=== PATIENT | male | born 1970 | race Caucasian/White ===

== ENCOUNTER 2025-01-09 19:30 | Emergency (ER) | payer MEDICARE, OTHER, SELFPAY ==
[2025-01-09 19:40] VITALS: BP 113/63; BMI 68.0
--- NOTE | 2025-01-09 19:41 | ED.GENMED ---
History of Present Illness
General
Chief Complaint: Crisis Evaluation
Source: patient
Exam Limitations: none
Time Seen by Provider: 01/09/25 19:32
History of Present Illness
History of Present Illness:
54-year-old male [facility] attempt of [facility] himself. He states he wrapped a rope around his neck and tied it to the door hinge and try to let his weight off his feet. He states the rope broke. He then spoke with
staff and they brought him here for evaluation. He states he is depressed. He was thinking about killing himself earlier today. He denies thoughts of harming others. He denies neck pain. He states he did not have an abrasion to his neck. No
shortness of breath that is new or chest pain.
Phy Exam
Physical Exam
Physical Exam:
General: Well-appearing obese male no respiratory distress
HEENT: Normocephalic atraumatic
Heart: Regular rate and rhythm
Lungs: Clear no wheeze
Abdomen is soft nontender
Extremities: No cyanosis
Psychiatric exam: Admits to depressed mood with recent suicidal thoughts and a plan to hang himself.
Course
Orders/Labs/Results
Orders:
Orders
01/09/25 19:41
Crisis Consult Urgent
Reason for Consult: SI
one to one [ED Special Safety Observation] ONCE
Observation level: One to One
01/09/25 20:04
1:1 Observation - Suicide/ Violent Behavior As Directed
01/09/25 20:23
Alcohol Urgent
Complete Blood Count/With Diff Urgent
Comprehensive Metabolic Panel Urgent
01/09/25 21:35
Drug Screen, Urine [Urine Drug Abuse Screen] Urgent
Date Specimen was Collected: 01/09/25
Time Specimen was Collected: 21:32
Fentanyl, Urine Urgent
01/10/25 02:01
0.9% Sodium Chloride 500 ml [Nss] 500 ml IV BOLUS
Insulin Human Regular [Novolin R] 10 units IV NOW STA
Abnormal Lab Results
01/09/25 01/09/25
20:23 21:35
RBC 4.14 L 10^6/uL
(4.70-6.10)
Hgb 11.5 L g/dL
(13.0-18.0)
Hct 35.5 L %
(39.0-52.0)
MCHC 32.4 L g/dL
(33.0-37.0)
RDW 14.7 H %
(11.5-14.5)
Plt Count 114 L 10^3/uL
(130-400)
MPV 11.0 H fL
(7.4-10.4)
Abs Immat Gran (auto) 0.1 H 10^3/uL
(0-0.05)
Absolute Lymphs (auto) 0.5 L 10^3/uL
(1.2-3.4)
Immature Gran % 1.2 H %
(0-0.5)
Neutrophils % 79.2 H %
(42.2-75.2)
Lymphocytes % 7.9 L %
(20.5-51.1)
Sodium 134 L mmol/L
(135-145)
BUN 44 H mg/dl
(9-20)
Creatinine 1.6 H mg/dL
(0.7-1.3)
Glucose 422 H mg/dl
(70-99)
Urine Opiates Screen Positive H
(Negative)
01/09/25 20:23
01/09/25 20:23
Vital Signs
Initial and Last Documented VS:
Initial Vital Signs
Temp Pulse Resp BP Pulse Ox
99.1 F 81 18 113/63 98
01/09/25 19:40 01/09/25 19:40 01/09/25 19:40 01/09/25 19:40 01/09/25 19:40
Last Documented Vital Signs
Temp Pulse Resp BP Pulse Ox
98.9 F 85 14 126/72 99
01/10/25 02:43 01/10/25 02:43 01/10/25 02:43 01/10/25 02:43 01/10/25 02:43
MDM/Problems Addressed
Differential Diagnosis Includes:
Patient here from facility after attempted hanging himself at his facility. One-to-one ordered crisis consult ordered. No evidence of trauma to the neck no respiratory distress or even abrasion on the neck at this time no indication for imaging.
Will check labs.
Crisis saw patient and are actively looking for placement however he has multiple medical comorbidities which will make placement somewhat difficult.
*Critical Care Note
Total Time (30-74mins, 75-104mins- exclusive of procedures): Not Applicable
Update Note
Update Note:
Serum glucose 422 without anion gap. Insulin ordered. Small fluid bolus ordered as well. Potential lower box placement tomorrow.
ED Attending Note
-
Portions of this chart may have been created with voice recognition software.� Occasional wrong word or��sound alike� substitutions may have occurred due to the inherent limitations of voice recognition software.
Discharge Plan
Departure
Patient Disposition: Psych Facility
Date of Disposition: 01/10/25
Time of Disposition: 03:00
Discharge Problem:
Suicidal ideation
Referrals:
Ha Cole MD [Family Provider] -
Interventions
Interventions:
*Risk Screen - Suicide Last Done: 01/09/25 19:40
*General Assessment Last Done: 01/09/25 19:40
*Neglect/Abuse Screening Last Done: 01/09/25 19:40
*ED- Fall Risk Assessment Last Done: 01/10/25 02:44
*ED COVID-19 Vaccine History Last Done: 01/10/25 02:44
ED-Psychological Assessment Last Done: 01/09/25 23:31
Discharge Date and Time
Print Language: TOGOLESE
[2025-01-09 20:34] LABS: % Basophils 0.7 % (0-2); % Eosinophils 2.8 % (0-6); % Immature Granulocytes 1.2 % (0-0.5); % Lymphocytes 7.9 % (20.5-51.1); % Monocytes 8.2 % (1.7-9.3); % Neutrophils 79.2 % (42.2-75.2); Absolute Eosinophils 0.2 10^3/uL (0-0.7); Absolute Immature Granulocytes 0.1 10^3/uL (0-0.05); Absolute Lymphocytes 0.5 10^3/uL (1.2-3.4); Absolute Monocytes 0.5 10^3/uL (0.1-0.6); Absolute Neutrophils 4.8 10^3/uL (1.4-6.5); Hematocrit 35.5 % (39.0-52.0); Hemoglobin 11.5 g/dL (13.0-18.0); Mean Corp Hgb Conc. 32.4 g/dL (33.0-37.0); Mean Corpuscular Hgb 27.8 pg (27.0-31.0); Mean Corpuscular Volume 85.7 fL (80.0-94.0); Nucleated Red Blood Cells % 0 % (-); Platelet Count 114 10^3/uL (130-400); Red Blood Cell Count 4.14 10^6/uL (4.70-6.10); Red Cell Dist. Width 14.7 % (11.5-14.5); White Blood Cell Count 6.1 10^3/uL (4.8-10.8)
[2025-01-09 20:54] LABS: ALT (SGPT) 23 U/L (0-50); AST (SGOT) 32 U/L (17-59); Albumin 3.5 g/dl (3.5-5.0); Alkaline Phosphatase 97 U/L (38-126); Blood Urea Nitrogen 44 mg/dl (9-20); Calcium 8.7 mg/dl (8.4-10.2); Carbon Dioxide 28 mmol/L (22-30); Chloride 98 mmol/L (98-107); Estimated Creatinine Clearance 99 ml/min; Glucose 422 mg/dl (70-99); Potassium 3.8 mmol/L (3.5-5.1); Sodium 134 mmol/L (135-145); Total Bilirubin 1.2 mg/dl (0.2-1.3); Total Protein 6.9 g/dl (6.3-8.2); eGFR 51.52
[2025-01-09 21:54] LABS: Amphetamines Negative (Negative); Barbiturates Negative (Negative); Benzodiazepines Negative (Negative); Buprenorphine Negative (Negative); Cocaine Negative (Negative); Marijuana Negative (Negative); Methadone Negative (Negative); Methamphetamines Negative (Negative); Opiates Positive (Negative); Phencyclidine Negative (Negative); Tricyclic Antidepressants Negative (Negative)
[2025-01-09 22:10] LABS: Fentanyl, Urine Negative (Negative)
[2025-01-10] MEDS: NSS 500 IV (02:33)
[2025-01-10] MEDS: NOVOLIN R 10 UNITS IV (02:36)
[2025-01-10 02:43] VITALS: BP 126/72
[2025-01-10 03:56] LABS: Glucose - Point of Care 276 mg/dl (70-99)
[2025-01-10 06:55] LABS: Glucose - Point of Care 290 mg/dl (70-99)
[2025-01-10 08:00] VITALS: BP 118/68
[2025-01-10 11:10] VITALS: BP 122/70
[2025-01-10 13:13] LABS: Glucose - Point of Care 281 mg/dl (70-99)
--- NOTE | 2025-01-10 14:07 | CON.HOSP ---
Addendum entered and electronically signed by Janette Sapp MD 01/10/25 14:15:
Mild thrombocytopenia likely secondary to cirrhosis.
Patient takes chronic opiates. Continue.
Original Note:
Family Physician
-
Family Physician: Ha Cole MD
Chief Complaint
-
suicide attempt
History of Present Illness
54-year-old male past medical history of obstructive sleep apnea, diastolic CHF, fibromyalgia, gout, CKD 3, PTSD, type 2 diabetes, anxiety/depression, obesity, asthma, TIA, liver cirrhosis, [facility] after
attempting to hang himself. He states that he wrapped a rope around his neck and tied at the door hinge and tried to let his weight of his feet. He states that the rope broke. He then spoke with staff and they brought him here for evaluation. He
states he is depressed. He was thinking about killing himself earlier today. He denies thoughts of harming others. Denies neck pain. He does not have an abrasion to his neck.
He complains of shortness of breath which is chronic. He has a massive hernia that no surgeon will operate on which causes him a lot of discomfort.
Medical History
Past Medical History
Past Medical History: Reports Other (obstructive sleep apnea, diastolic CHF, fibromyalgia, gout, CKD 3, PTSD, type 2 diabetes, anxiety/depression, obesity, asthma, TIA, liver cirrhosis)
Past Surgical History: Reports None
Social History
Tobacco: Non-smoker
Alcohol: None
Drug: None
Allergies / Home Medications
Allergies reflects when Allergies were last updated in [employer].
Home Medications with original date entered in [employer]
Allergy/Medication List:
Allergies
Allergy/AdvReac Type Severity Reaction Status Date / Time
oxycodone [From OxyContin] Allergy Severe Pharmacy Verified 01/10/25 06:49
to Review
morphine Allergy Mild Unknown Verified 01/10/25 06:49
Sulfa (Sulfonamide Allergy Unknown Unknown Verified 01/10/25 06:49
Antibiotics)
Home Medications
acetaminophen 325 mg tablet 650 mg PO Q4H PRN fever 01/10/25
acetaminophen 325 mg tablet 650 mg PO Q4H PRN mild pain 01/10/25
acetaminophen 650 mg rectal suppository 650 mg VA Q4H PRN fever 01/10/25
albuterol sulfate 90 mcg/actuation aerosol inhaler 2 puff inhalation Q6H PRN wheezing 01/10/25
allopurinol 100 mg tablet 100 mg PO DAILY 01/10/25
bisacodyl 10 mg rectal suppository 10 mg VA DAILY PRN if no BM with MOM 01/10/25
bumetanide 2 mg tablet 2 mg PO BID 01/10/25
clotrimazole 1 % topical cream 1 applic topical BID 01/10/25
diclofenac sodium 1 % topical gel 2 g topical QIDPRN PRN shoulder pain 01/10/25
diclofenac sodium 1 % topical gel (Voltaren Arthritis Pain) 4 g topical Q6H apply to left knee topica 01/10/25
empagliflozin 25 mg tablet 25 mg PO DAILY 01/10/25
famotidine 20 mg tablet 20 mg PO BIDPRN PRN heartburn or indigestion 01/10/25
ferrous sulfate 325 mg (65 mg iron) tablet 325 mg PO DAILY 01/10/25
fluoxetine 20 mg capsule 60 mg PO DAILY 01/10/25
hydromorphone 1 mg/mL oral liquid (Dilaudid) 1 mg PO Q1HPRN PRN 1 MG SL for SOB or pain 01/10/25
hyoscyamine sulfate 0.125 mg sublingual tablet (Levsin/SL) 0.125 mg PO Q4HPRN PRN secretions 01/10/25
insulin glargine 100 unit/mL (3 mL) subcutaneous pen (Basaglar KwikPen U-100 Insulin) 48 unit SC QPM 01/10/25
insulin lispro 100 unit/mL subcutaneous pen 20 unit SC TID 01/10/25
insulin lispro 100 unit/mL subcutaneous solution 1 sliding scale dose SC DIRECTED 01/10/25
levetiracetam 500 mg tablet 500 mg PO BID 01/10/25
loperamide 2 mg tablet 2 mg PO Q6H PRN loose stools 01/10/25
lorazepam 2 mg/mL oral concentrate 0.25 mg PO Q4HPRN PRN anxiety 01/10/25
magnesium hydroxide 400 mg/5 mL oral suspension 400 mg PO DAILY PRN if no BM after 3 days 01/10/25
menthol-sorbitol lozenges 1 tori mucous membrane Q4HPRN PRN sore throat cough 01/10/25
metoprolol succinate 25 mg capsule sprinkle, ext. release 24 hr 25 mg PO DAILY 01/10/25
nitroglycerin 0.4 mg sublingual tablet 0.4 mg sublingual Q5-15M PRN chest pain up to 3 doses 01/10/25
nystatin 1 billion unit oral powder 1 unit PO DAILY 01/10/25
ondansetron 4 mg disintegrating tablet 4 mg PO Q6H PRN nausea/vomiting 01/10/25
pantoprazole 40 mg tablet,delayed release 40 mg PO DAILY 01/10/25
polyethylene glycol 3350 17 gram oral powder packet (Miralax) 17 g PO DAILY 01/10/25
pyridoxine (vitamin B6) 100 mg tablet 100 mg PO DAILY 01/10/25
rifaximin 550 mg tablet 550 mg PO BID 01/10/25
sodium chloride 0.65 % nasal spray aerosol (Deep Sea Nasal) 2 spray intranasal BID 01/10/25
spironolactone 100 mg tablet 100 mg PO DAILY in evening for CHF 01/10/25
sucralfate 1 gram tablet 1 g PO ACHS 01/10/25
Review of Systems
-
Constitutional: Reports No Symptoms
EENT: Reports No Symptoms
Respiratory: Reports See HPI
Cardiac: Reports No Symptoms
Abdomen/GI: Reports No Symptoms
: Reports No Symptoms
Musculoskeletal: Reports No Symptoms
Skin: Reports No Symptoms
Neurological: Reports No Symptoms
Endocrine: Reports No Symptoms
Hematologic/Lymphatic: Reports No Symptoms
Psych: Reports No Symptoms
Physical Exam
Vital Signs
Vital Signs
Temp Pulse Resp BP Pulse Ox
98.4 F 78 18 122/70 99
01/10/25 08:00 01/10/25 11:10 01/10/25 11:10 01/10/25 11:10 01/10/25 11:10
Physical Exam
General: Well Developed, Well Nourished and No Apparent Distress
HEENT: Normocephalic, Moist Mucous Membranes and Atraumatic
Respiratory: Clear
Cardiac: S1/S2 and Regular Rhythm; Negative Murmur or Rub
GI: Soft, Non Tender, Non Distended and Normal Bowel Sounds
Rectal: Deferred by Provider
Musculoskeletal: No Clubbing, No Cyanosis and No Edema
Skin: Negative Rash
Neuro: Nonfocal/Grossly Intact
Laboratory Results
-
Laboratory Results
01/09/25 20:23
01/09/25 20:23
Total Bilirubin 1.2 mg/dl (0.2-1.3) 01/09/25 20:23
AST 32 U/L (17-59) 01/09/25 20:23
ALT 23 U/L (0-50) 01/09/25 20:23
Alkaline Phosphatase 97 U/L (38-126) 01/09/25 20:23
Data Reviewed
-
Lab Data: Labs Reviewed
Old Records: Reviewed
Impression / Plan
-
IMPRESSION:
PLAN:
# Suicide attempt
- Crisis working on placement
-One-to-one sitter
- UDS pending
- Alcohol level pending
- Psychiatry
- Continue fluoxetine
# Hyperglycemia secondary to untreated diabetes
#Type 2 diabetes
- Blood sugar 440
- Continue Lantus 48 units
- Continue lispro 20 units 3 times daily
- High-dose insulin sliding scale
- Continue empagliflozin
#Severe abdominal hernia
- As per patient no surgeon will operate on him
# Chronic dyspnea likely secondary to severe obesity/chronic CHF
- O2 saturation 99%
- EKG shows sinus rhythm first-degree AV block
- Check chest x-ray, cardiac BNP
Diastolic CHF
- Continue metoprolol
- Continue Bumex
Obstructive sleep apnea
Asthma
CKD3
- Unknown baseline creatinine, currently 1.6 which is likely close to baseline
- IV fluids given, hold off on further fluids
Mild thrombocytopenia
Anemia
Gout
- Continue allopurinol
Fibromyalgia
Anxiety/PTSD
- Continue lorazepam
Possible seizure disorder?
- Continue Keppra
Liver cirrhosis
- Continue spironolactone, rifaximin
- Continue Bumex
GERD
- Continue sucralfate, Protonix
Hyperlipidemia
Morbid obesity
Full code
DVT prophylaxis�heparin
Regular diet
[2025-01-10 15:50] LABS: NT-proBNP 155 pg/ml
[2025-01-10 16:04] VITALS: BP 128/78
[2025-01-10] MEDS: BUMEX 4 MG PO (16:15)
[2025-01-10] MEDS: CARAFATE 1 GRAM PO ×2 (16:19→21:03)
[2025-01-10] MEDS: NOVOLOG FLEXPEN-HIGH RESISTANCE 10 UNITS SC (16:26)
[2025-01-10 16:27] LABS: Glucose - Point of Care 323 mg/dl (70-99)
[2025-01-10] MEDS: NOVOLOG FLEXPEN 20 UNITS SC (16:27)
[2025-01-10 19:01] LABS: Glucose - Point of Care 293 mg/dl (70-99)
[2025-01-10] MEDS: LANTUS 0.48 UNITS SC (19:30)
[2025-01-10 19:40] VITALS: BP 151/54
[2025-01-10] MEDS: KEPPRA 500 MG PO (21:03)
[2025-01-10] MEDS: LOTRIMIN 1% CREAM 1 APPLIC TOPICAL (21:04)
[2025-01-10] MEDS: XIFAXAN 550 MG PO (21:04)
[2025-01-10] MEDS: OCEAN, SALINE MIST 2 SPRAYS NASAL (21:04)
[2025-01-10 23:19] LABS: Glucose - Point of Care 308 mg/dl (70-99)
[2025-01-10 23:25] VITALS: BP 120/53
[2025-01-11 07:40] LABS: Glucose - Point of Care 251 mg/dl (70-99)
[2025-01-11 07:48] VITALS: BP 118/61
[2025-01-11] MEDS: KEPPRA 500 MG PO ×2 (07:54→20:10)
[2025-01-11] MEDS: FEOSOL 325 MG PO (07:54)
[2025-01-11] MEDS: TOPROL XL 25 MG PO (07:54)
[2025-01-11] MEDS: BUMEX 4 MG PO ×2 (07:54→17:07)
[2025-01-11] MEDS: CARAFATE 1 GRAM PO ×3 (07:54→17:07)
[2025-01-11] MEDS: FARXIGA 10 MG PO (07:54)
[2025-01-11] MEDS: OCEAN, SALINE MIST 2 SPRAYS NASAL ×2 (07:55→20:11)
[2025-01-11] MEDS: PROZAC 60 MG PO (07:55)
[2025-01-11] MEDS: VITAMIN B-6 100 MG PO (07:55)
[2025-01-11] MEDS: ZYLOPRIM 100 MG PO (07:55)
[2025-01-11] MEDS: PROTONIX 40 MG PO (07:55)
[2025-01-11] MEDS: XIFAXAN 550 MG PO ×2 (08:28→20:11)
[2025-01-11] MEDS: ALDACTONE 100 MG PO (08:28)
[2025-01-11] MEDS: LOTRIMIN 1% CREAM 1 APPLIC TOPICAL (08:29)
[2025-01-11] MEDS: DESENEX/MITRAZOL/ZEASORB 1 APPLIC TOPICAL (08:30)
[2025-01-11] MEDS: NOVOLOG FLEXPEN-HIGH RESISTANCE 7 UNITS SC (08:32)
[2025-01-11] MEDS: NOVOLOG FLEXPEN 20 UNITS SC ×3 (08:34→18:06)
--- NOTE | 2025-01-11 09:15 | EDRN ---
Pt voided on floor in room at this time.
--- NOTE | 2025-01-11 09:18 | W.PN.HOSP.TC ---
Today's Communication/Plan
-
Check troponin
EKG
Continue insulin
Assessment / Plan
Assessment / Plan
Gen-AAOx3, mild distress, morbid obesity
HEENT-NC, AT, anicteric, clear oral mm
Neck-supple
CV-reg, no M, +S1/S2
Lungs-clear B/L
Abd-soft, NT, ND, massive hernia
Ext-no edema
Musculoskeletal-no cyanosis, clubbing
Skin-warm and dry
Neuro-grossly non-focal
Psych-calm, cooperative
Chest pain -atypical. Doubt ACS. Check troponin. Check EKG.
DM2 with hyperglycemia -glucose 251 this morning. Currently on Lantus 48 units at bedtime, NovoLog 20 units AC, high resistance NovoLog scale. Hemoglobin A1c pending.
Pseudohyponatremia -due to hyperglycemia.
Major depression with suicidal ideation/attempt -crisis working on placement. One-to-one sitter.
Large abdominal hernia
Chronic heart failure preserved EF -stable.
HANK
Asthma without exacerbation
CKD 3a -unknown baseline creatinine. Recheck labs today.
Hepatic cirrhosis -will need close outpatient follow-up. Anemia and thrombocytopenia presumably due to cirrhosis.
GERD
History of gout
Hyperlipidemia
Super morbid obesity
Anticipated Discharge: Within 24 hours
Subjective/Interval History
-
Date of Service: January 11, 2025
Patient seen and examined. Complaining of chest pain. Refusing to answer more questions.
During my examination patient lost control of his bladder and urinated on the floor.
Objective Data
-
Vital Signs:
Vital Signs
Temp Pulse Resp BP Pulse Ox
98.6 F 73 20 118/61 100
01/10/25 23:25 01/11/25 08:28 01/11/25 07:48 01/11/25 08:28 01/11/25 07:48
I&O
01/10/25 01/11/25 01/12/25
06:59 06:59 06:59
Intake Total 500 / 500
Balance 500 / 500
Review of Systems
-
History Source: Patient
All other systems: Reviewed and negative
--- NOTE | 2025-01-11 10:07 | EDRN ---
Pt complaining of chest pain at this time. TRop and BMP ordered and sent and EKG done. Pt placed on phototypesetting equipment monitor in room.
[2025-01-11 10:10] VITALS: BP 120/62
--- NOTE | 2025-01-11 10:11 | EDRN ---
Dr. Sheffield was in to see pt at aron 9:15 and placed orders as pt had chest pain. Pt also voided on MD.
[2025-01-11 10:38] LABS: Blood Urea Nitrogen 36 mg/dl (9-20); Carbon Dioxide 32 mmol/L (22-30); Chloride 101 mmol/L (98-107); Estimated Creatinine Clearance 122 ml/min; Glucose 263 mg/dl (70-99); Potassium 3.7 mmol/L (3.5-5.1); Sodium 139 mmol/L (135-145); eGFR > 60.00
[2025-01-11 10:50] LABS: Troponin I < 0.012 ng/ml
[2025-01-11 11:10] VITALS: BP 121/66
--- NOTE | 2025-01-11 11:11 | EDRN ---
Pt just voided all over the floor again for the 3rd time this am.
--- NOTE | 2025-01-11 11:38 | EDRN ---
Dr. Sheffield had done to BMP, trop and EKG orders so this RN texted that labs are resulted at this time w/ pt still in chest pain at 04/05/
[2025-01-11 11:50] LABS: Glucose - Point of Care 231 mg/dl (70-99)
[2025-01-11] MEDS: PEPCID 20 MG PO (11:52)
--- NOTE | 2025-01-11 11:53 | EDRN ---
Pt offered tylenol for his pain. Pt declined tylenol saying that he only takes dilaudid.
[2025-01-11] MEDS: NOVOLOG FLEXPEN-HIGH RESISTANCE 4 UNITS SC (11:55)
[2025-01-11 12:10] VITALS: BP 127/68
[2025-01-11] MEDS: DILAUDID 1 MG PO (12:17)
[2025-01-11] MEDS: ATIVAN 0.25 MG PO (12:31)
[2025-01-11 13:17] LABS: Glycohemoglobin (HgbA1c) 11.1 % (4.0-5.6)
--- NOTE | 2025-01-11 13:30 | EDRN ---
Pt received breakfast late and ate it at 12:00 noon and is now eating his lunch at this time. Pt states pain in chest now 02/03.
--- NOTE | 2025-01-11 13:39 | EDRN ---
Cardiac monitoring will be discontinued when pt is through eating. Dr. Adams stated he did not think the pain pt is feeling is cardiac w/ normal troponin and EKG.
--- NOTE | 2025-01-11 14:35 | EDRN ---
This RN saw chip loft worker, working w/ this pt in , walking towards pt room. This RN asked about pt's plan for disposition. She informed this RN that plan at present is for pt to return to [facility] that he came from. Other chip loft worker,
she said Brandon is speaking w/ SNF at this time.
--- NOTE | 2025-01-11 14:46 | CS.PSYCHR ---
Consult Summary - Psychiatry
-
Psychiatry consult for depression/SI. Chart reviewed. Patient was evaluated by crisis and signed a 201. Placement has been difficult due to his multiple medical issues. Patient admits he is unhappy at [facility] and so he tried to hang himself
with a rope but it broke. He states he was frustrated about the way he is treated and the circumstances there but understands that even if he is psychiatrically hospitalized, he will ultimately have to return there at least in the short term. He
states he is no longer suicidal and would rather return home than to stay in the ER awaiting placement. He states if hospice could be more involved in his care there and even bring back dog therapy, he will be happier there. He does not think
psychiatric hospitalization will benefit at this time and he does not want changes to his psychiatric medications. He denies manic or psychotic symptoms.
He has been in behavioral control in the hospital.
MSE- obese, on oxygen, good eye contact. spontaneous fluent speech. circumstantial thought process. Denies suicidal ideations, active or passive. denies HI. Denies AVH. no delusions. Limited insight/judgement. fully oriented.
PMH-obstructive sleep apnea, diastolic CHF, fibromyalgia, gout, CKD 3, PTSD, type 2 diabetes, obesity, asthma, TIA, liver cirrhosis
Social- Lives at [facility]
psych history- history of depression and anxiety. currently on prozac 60mg daily and ativan 0.25mg [id number] PRN anxiety
A/P- 54 yo male with history of depression and anxiety on a 201. Patient stating he feels safe and is focused on discharge back to residential. Will have crisis contact [facility] to schedule his return. Continue current psychiatric medications.
--- NOTE | 2025-01-11 15:13 | EDRN ---
Pt just ambulated and used BR at this time.
--- NOTE | 2025-01-11 15:50 | ED.CRISIS ---
ED Crisis Note
ED Crisis Note
Subjective:
54-year-old male with multiple medical issues who lives at [facility]; he presented after suicide attempt by hanging. He has been pending placement for the past 48 hours which has been difficult due to his medical comorbidities. He says he is
feeling better. He says he is no longer suicidal. He wants to go home.
Objective:
Resting comfortably no distress. Vital signs stable.
Assessment/Plan:
Patient here voluntarily for placement after suicide attempt. He is no longer suicidal and wishes to go home. He was seen by psychiatry and cleared for discharge. Will transport back to living facility.
[2025-01-11 17:56] LABS: Glucose - Point of Care 313 mg/dl (70-99)
[2025-01-11] MEDS: NOVOLOG FLEXPEN-HIGH RESISTANCE 10 UNITS SC (18:05)
--- NOTE | 2025-01-11 18:44 | EDRN ---
Report called to Rivera Ching LPN at [facility] at this time. Rivera knows pt and was updated about pt at this time. Pt ate 100% of his dinner.
[2025-01-11] MEDS: LANTUS 0.48 UNITS SC (20:00)
[2025-01-11 20:19] LABS: Glucose - Point of Care 301 mg/dl (70-99)
== END 2025-01-11 21:25 | disposition home or self-care (01) ==
LOC: EMR 19:30
PROVIDERS: Hospitalist; Physician Assistant; CONSULT PHYSICIAN Hospitalist; CONSULT PHYSICIAN Psychiatry & Neurology Psychiatry; EMERGENCY PHYSICIAN Student in an Organized Health Care Education/Training Program; FAMILY PHYSICIAN Internal Medicine
DX: T14.91XA Suicide attempt, initial encounter (principal); Y92.9 Unspecified place or not applicable; D64.9 Anemia, unspecified; D69.6 Thrombocytopenia, unspecified; I50.32 Chronic diastolic (congestive) heart failure; E11.22 Type 2 diabetes mellitus with diabetic chronic kidney disease; E11.65 Type 2 diabetes mellitus with hyperglycemia; N18.31 Chronic kidney disease, stage 3a; E66.01 Morbid (severe) obesity due to excess calories; E78.00 Pure hypercholesterolemia, unspecified; G47.33 Obstructive sleep apnea (adult) (pediatric); J45.909 Unspecified asthma, uncomplicated; K21.9 Gastro-esophageal reflux disease without esophagitis; M79.7 Fibromyalgia; Z79.84 Long term (current) use of oral hypoglycemic drugs; Z79.899 Other long term (current) drug therapy; Z86.73 Personal history of transient ischemic attack (TIA), and cerebral infarction without residual deficits; Z88.1 Allergy status to other antibiotic agents; Z88.2 Allergy status to sulfonamides; Z88.5 Allergy status to narcotic agent
CPT/HCPCS: 99285; 96372; 71045; 80048; 80053; 80306; 80307; 82077; 82962; 83036; 83880; 84484; 85025; 93005

== ENCOUNTER 2025-02-24 20:15 | Emergency (ER) | payer MEDICARE, OTHER, SELFPAY ==
[2025-02-24 20:17] VITALS: BP 140/81
[2025-02-24 20:53] LABS: Hematocrit 33.1 % (39.0-52.0); Hemoglobin 10.8 g/dL (13.0-18.0); Mean Corp Hgb Conc. 32.6 g/dL (33.0-37.0); Mean Corpuscular Volume 86.0 fL (80.0-94.0); Nucleated Red Blood Cells % 0 % (-); Platelet Count 104 10^3/uL (130-400); Red Cell Dist. Width 14.8 % (11.5-14.5)
[2025-02-24 21:10] LABS: ALT (SGPT) 24 U/L (0-50); AST (SGOT) 34 U/L (17-59); Albumin 3.4 g/dl (3.5-5.0); Alkaline Phosphatase 80 U/L (38-126); Blood Urea Nitrogen 32 mg/dl (9-20); Calcium 8.8 mg/dl (8.4-10.2); Carbon Dioxide 30 mmol/L (22-30); Chloride 104 mmol/L (98-107); Estimated Creatinine Clearance > 125 ml/min; Glucose 252 mg/dl (70-99); Lipase 251 U/L (23-300); Potassium 3.6 mmol/L (3.5-5.1); Sodium 138 mmol/L (135-145); Total Protein 6.6 g/dl (6.3-8.2); eGFR > 60.00
--- NOTE | 2025-02-24 21:37 | EDRN ---
Pt was placed in a bariatric hospital bed upon arrival. Pt said he had to go to the bathroom and asked to walk into bathroom. Pt got himself up and walked into bathroom, gait slow and steady. Liquid noted on patient L side of stretcher on floor
and underneath stretcher. Housekeeping in to mop floor. This RN changed all bed linens, placed white pads over chux pads on bed. When pt returned to bed, he said the liquid on the floor was from him urinating once or twice.
[2025-02-24 22:00] VITALS: BP 138/70
--- NOTE | 2025-02-24 22:56 | ED.GENMED ---
History of Present Illness
General
Chief Complaint: Weight Changes
Source: patient
Exam Limitations: none
Time Seen by Provider: 02/24/25 22:54
Nursing documentation reviewed up to this point in time: agreed with
History of Present Illness
History of Present Illness:
Note:
CHIEF COMPLAINT(S)
Severe swelling in the groin region.
HISTORY OF PRESENT ILLNESS
The patient is a 55-year-old male with a mast medical history of asthma, chf, hlp, GERD, liver cirrhosis, type 2 diabetes who presents today with experiencing fluctuating swelling and discomfort in the groin area for approximately one year. He comes
from [facility]. He reports that the swelling has grown so big that he has trouble walking and urinating. Initially, the swelling would increase and decrease sporadically, but in the last four to six months, it has progressively
worsened. The condition exacerbated over the past week, resulting in increased pain and difficulty sitting. The swelling, described as a 'ball of fat,' has displaced the patients genitalia, causing significant urinary discomfort and requiring
manipulation to urinate, which the patient describes as 'like taking the thing over sandpaper' causing intense pain. No prior surgical interventions have been commenced as local hospitals, including [place], indicated they were not equipped to
manage the condition. The patient has upcoming appointments for surgical consultations, one with a urologist in [facility] on the and one including with [facility] surgical department, given the anticipated need for multidisciplinary surgical
intervention involving urology, plastic surgery, vascular surgery, and gastrointestinal teams. He reports that he has seen multiple providers for this issue and no one is willing to do surgery. Occasionally, patient will feel a pulling sensation in
his abdomen but currently denies abdominal pain, nausea, vomiting. Patient reports that he is given lasix which does not help.
SOCIAL DETERMINANTS AFFECTING HEALTH
The patient�s narrative includes ongoing and substantial personal discomfort with daily activities such as urination, and the financial burden from recurrent consultations without resolution also implies potential barriers to accessing effective
surgical care.
REVIEW OF SYSTEMS
See HPI
PHYSICAL EXAM
General: Patient appears chronically ill appearing but non-toxic
Skin: Warm and dry, no rashes or lesions
Head: Normocephalic, atraumatic
Eyes: Sclera non-icteric. EOMs intact.
Cardiac: Regular rate and rhythm, no murmurs
Peripheral Vascular: Bilateral lower extremity edema, 2+ DP and PT pulses bilaterally
Pulm: Normal respiratory effort
Abdomen: No abdominal tenderness to palpation
Genitourinary: Severe scrotal swelling noted bilaterally
Neuro: CN II-XII intact, no focal neurologic deficits.
Psychiatric: Appropriate mood and affect.
PLAN
-Patient reports that he has had CAT scans done at [facility] and ultrasounds done at [facility]. I did explain to patient that we do not have any prior imaging of his problem. Unfortunately, patient exceeds our circumference limit for CT scan, will
proceed with ultrasound
-CBC, CMP, pro-bnp
DIFFERENTIAL DIAGNOSIS
The Differential Diagnosis includes, in no particular order and is not limited to:
1. Inguinal hernia
2. Lipoma or other benign tumors
3. Reactive lymphadenopathy
4. Testicular torsion
5. Varicocele
6. Hydrocele
7. Epididymitis
8. Scrotal edema secondary to heart failure or renal disease
9. Lymphedema
10. Testicular cancer
UPDATES
-Patient makes various inappropriate comments to me regarding anatomy and the difference between male and female providers
-customer support technician was arranged for 10 am via two EMS crews; I was instructed by nursing staff to order patient's home meds
CHART REVIEW
Reviewed ER physician mentation from 01/10/2020
MDM/DISPOSITION
The patient is a 55-year-old male with a mast medical history of asthma, chf, hlp, GERD, liver cirrhosis, type 2 diabetes who presents today with experiencing fluctuating swelling and discomfort in the groin area for approximately one year. He felt
like its gotten worse the past week. He has appointment scheduled for specialist with [facility] and a independent practice in [place]. He has no associated fevers or chills. He is currently free of abdominal pain. Physical exam he appears
chronically ill but nontoxic-appearing, he has no fever, he has no abdominal tenderness. He has no chest pain, shortness of breath. He has extreme swelling to his scrotum. Did attempt to send patient for CAT scan however patient exceeds
circumference limit. Did get ultrasound which showed no evidence of torsion or acute problems. Case reviewed with ER attending physician. I stressed to patient that this is a chronic issue and that he needs to be evaluated on outpatient basis and
there is no acute intervention for this problem. Patient expressed understanding. Patient stable for discharge.
Review of Systems
Review of Systems
All Other Systems: ROS reviewed and negative except as documented in HPI and ROS
Phy Exam
Physical Exam
Physical Exam:
see hpi
Scores
Heart Failure Risk
Heart Failure Risk Score: Not Applicable
Course
Orders/Labs/Results
Orders:
Orders
02/24/25 20:34
IV Insert/Care/Rem.- Treatment PRN
02/24/25 20:40
BNP [NT-proBNP] Urgent
Complete Blood Count/With Diff Urgent
Comprehensive Metabolic Panel Urgent
Lipase Urgent
02/25/25 00:00
US Scrotum Urgent
Reason For Exam: scrotal swelling
02/25/25 06:00
Allopurinol [Zyloprim] 100 mg PO NOW STA
Bumetanide [Bumex] 4 mg PO DAILY ONE
Ferrous Sulfate [Feosol] 325 mg PO NOW STA
Levetiracetam [Keppra] 500 mg PO NOW STA
METFORMIN HCl [Glucophage] 500 mg PO NOW STA
Pantoprazole [Protonix] 40 mg PO NOW STA
Pyridoxine [Vitamin B-6] 100 mg PO NOW STA
02/25/25 06:02
Fluoxetine HCl [Prozac] 60 mg PO DAILY ONE
02/25/25 06:07
Aspirin 325 mg PO NOW STA
Abnormal Lab Results
02/24/25
20:40
RBC 3.85 L 10^6/uL
(4.70-6.10)
Hgb 10.8 L g/dL
(13.0-18.0)
Hct 33.1 L %
(39.0-52.0)
MCHC 32.6 L g/dL
(33.0-37.0)
RDW 14.8 H %
(11.5-14.5)
Plt Count 104 L 10^3/uL
(130-400)
MPV 11.0 H fL
(7.4-10.4)
Abs Immat Gran (auto) 0.1 H 10^3/uL
(0-0.05)
Absolute Lymphs (auto) 0.7 L 10^3/uL
(1.2-3.4)
Immature Gran % 0.8 H %
(0-0.5)
Neutrophils % 75.8 H %
(42.2-75.2)
Lymphocytes % 10.9 L %
(20.5-51.1)
BUN 32 H mg/dl
(9-20)
Glucose 252 H mg/dl
(70-99)
Albumin 3.4 L g/dl
(3.5-5.0)
02/24/25 20:40
02/24/25 20:40
Vital Signs
Initial and Last Documented VS:
Initial Vital Signs
Temp Pulse Resp BP Pulse Ox
98.5 F 74 21 140/81 97
02/24/25 20:17 02/24/25 20:17 02/24/25 20:17 02/24/25 20:17 02/24/25 20:17
Last Documented Vital Signs
Temp Pulse Resp BP Pulse Ox
98.5 F 64 16 122/64 97
02/24/25 20:17 02/25/25 05:00 02/25/25 05:00 02/25/25 02:12 02/25/25 05:00
*Pulse Oximetry
SaO2: 99
Nasal Cannula flow liters per minute: 2
Patient hypoxic: not evaluated
*Critical Care Note
Total Time (30-74mins, 75-104mins- exclusive of procedures): Not Applicable
ED Attending Note
-
Portions of this chart may have been created with voice recognition software.� Occasional wrong word or��sound alike� substitutions may have occurred due to the inherent limitations of voice recognition software.
Discharge Plan
Departure
Patient Disposition: Home (Routine Discharge)
Date of Disposition: 02/25/25
Time of Disposition: 02:41
Patient with high blood pressure during this ER visit?: Yes
Condition: Good
Discharge Problem:
Scrotum swelling
Instructions: Swelling, Lymphedema, BLOOD PRESSURE
Prescriptions:
No Action
acetaminophen 325 mg Tablet
650 mg PO Q4H PRN (Reason: mild pain/temp >101.0)
bumetanide [Bumex] 2 mg Tablet
4 mg PO BID
polyethylene glycol 3350 [Miralax] 17 gram Powder In Packet
17 g PO DAILY
levetiracetam 500 mg Tablet
500 mg PO Q12H
sucralfate 1 gram Tablet
1 g PO QID
Rx Instructions:
30min before meals and HS
loperamide 2 mg Tablet
2 mg PO Q6H PRN (Reason: loose stools)
allopurinol 100 mg Tablet
100 mg PO DAILY
famotidine 20 mg Tablet
20 mg PO [id number] PRN (Reason: heartburn or indigestion)
magnesium hydroxide 400 mg/5 mL Suspension
2,400 mg PO DAILYPRN PRN (Reason: if no BM after 3 days)
bisacodyl 10 mg Suppository
10 mg NH DAILY PRN (Reason: if no BM 24h after MOM)
pantoprazole 40 mg Tablet,Delayed Release (Dr/Ec)
40 mg PO DAILY
ferrous sulfate 325 mg (65 mg iron) Tablet
325 mg PO Q48H
hyoscyamine sulfate [Levsin/SL] 0.125 mg Tablet, Sublingual
0.125 mg PO Q6HPRN PRN (Reason: secretions)
nitroglycerin 0.4 mg Tablet, Sublingual
0.4 mg SUBLINGUAL Q5-15M PRN (Reason: chest pain up to 3 doses)
pyridoxine (vitamin B6) 100 mg Tablet
100 mg PO DAILY
albuterol sulfate 90 mcg/actuation Hfa Aerosol Inhaler
2 puff INHALATION Q6H PRN (Reason: wheezing)
ondansetron 4 mg Tablet,Disintegrating
4 mg PO Q6H PRN (Reason: nausea/vomiting)
clotrimazole 1 % Cream
1 applic TOPICAL [id number] PRN (Reason: fungal infection)
Rx Instructions:
apply to neck folds
lorazepam 2 mg/mL Concentrate
0.5 mg sublingual Q4HPRN PRN (Reason: anxiety)
hydromorphone [Dilaudid] 1 mg/mL Liquid
1 mg PO Q1HPRN PRN (Reason: SL for sob or pain)
insulin lispro 100 unit/mL Insulin Pen
14 unit SC AC
insulin glargine [Basaglar KwikPen U-100 Insulin] 100 unit/mL (3 mL) Insulin Pen
34 unit SC HS
diclofenac sodium [Voltaren Arthritis Pain] 1 % Gel
4 g TOPICAL Q6H
diclofenac sodium [Voltaren] 1 % Gel
2 g TOPICAL Q6HPRN PRN (Reason: shoulder pain)
Rx Instructions:
apply to right shoulder as needed for pain
rifaximin 550 mg Tablet
550 mg PO BID
metoprolol succinate 25 mg Capsule,Sprinkle,Er 24hr
25 mg PO DAILY
nystatin 100,000 unit/gram Powder
1 applic TOPICAL TID
Rx Instructions:
apply to abdominal and back skin folds and insert ABDS
order from facility ends on 02/25/25
fluoxetine [Prozac] 20 mg Capsule
60 mg PO DAILY
povidone-iodine [Betadine] 10 % Solution
1 applic TOPICAL DAILY
Rx Instructions:
apply yo R 2nd and 3rd toes every day shift - cleanse with saline, paint with betadine and leave open to air
metformin 500 mg Tablet Extended Release 24hr
500 mg PO QPM
aspirin 81 mg Capsule
81 mg PO DAILY
Rx Instructions:
take with food
Referrals:
Ha Cole MD [Family Provider]
Anselmo Harrell MD [Active, Urology]
Activity Restrictions/Additional Instructions:
Please call the attached number to schedule appointment with [facility]. Please follow-up with [facility] and with the urology appointment in [place].
PLEASE RETURN EMERGENCY DEPARTMENT SHOULD YOU DEVELOP FEVERS OR CHILLS, ACUTE WORSENING OF YOUR PAIN, INTRACTABLE NAUSEA OR VOMITING, CHEST PAIN, SHORTNESS OF BREATH, DIZZINESS, LIGHTHEADEDNESS, OR ANY OTHER SIGNS OR SYMPTOMS WORRISOME TO YOU.
Interventions
Interventions:
*Risk Screen - Suicide Last Done: 02/24/25 20:43
*General Assessment Last Done: 02/24/25 20:17
*Neglect/Abuse Screening Last Done: 02/24/25 20:17
*ED- Fall Risk Assessment Last Done: 02/25/25 01:28
*ED COVID-19 Vaccine History Last Done: 02/24/25 20:17
Discharge Date and Time
Print Language: CZECH
--- NOTE | 2025-02-25 01:26 | EDRN ---
US tech reported pt's floor was wet. Pt incontinent large amount of urine. Pt says he does not know he has to urinate when he is sleeping. All pads underneath pt soaked with urine. Pt stood at bedside while staff cleaned bed, new linens/pads
applied. Pt assisted with changing into new gown. Pt declined need to use rest room.
[2025-02-25 02:12] VITALS: BP 122/64
--- NOTE | 2025-02-25 05:48 | EDRN ---
Pt walked to the doorway and open the door crying 'I need help.' Pt said he needed his oxygen (pt removed it to go to the bathroom). Pt shown where he left his O2. Then pt cried 'You turned off my call burch.' Pt informed staff do not have the
ability to permanently turn off pt call bells nor would staff do that if it was possible. Call burch checked and is working. Pt asked for a warm blanket which was provided.
[2025-02-25] MEDS: FEOSOL 325 MG PO (06:19)
[2025-02-25] MEDS: VITAMIN B-6 100 MG PO (06:19)
[2025-02-25] MEDS: ZYLOPRIM 100 MG PO (06:20)
[2025-02-25] MEDS: KEPPRA 500 MG PO (06:20)
[2025-02-25] MEDS: PROTONIX 40 MG PO (06:20)
[2025-02-25] MEDS: ASPIRIN 325 MG PO (06:20)
[2025-02-25] MEDS: GLUCOPHAGE 500 MG PO (06:20)
[2025-02-25 06:28] VITALS: BP 117/64
[2025-02-25] MEDS: PROZAC 60 MG PO (06:28)
[2025-02-25] MEDS: BUMEX 4 MG PO (06:28)
--- NOTE | 2025-02-25 09:26 | EDRN ---
multiple attempts to call report to [facility]-- my call is being forwarded to a voice mail system. I did try to ask for a sewing department supervisor as i explained that i can't leave pt info in a voice mail.. I did leave MY number and asked to have the staff
call me as well. I was speaking to someone named Celena from the 3rd floor who was trying to assist me
--- NOTE | 2025-02-25 10:16 | EDRN ---
attempted to call report to [facility]- no answer-- again my call went to box. This time I left a message ( no pt identifiers) ; stating that one of their residents was returning to their facility and that their paperwork is going with them. I
left my phone number and name in case they wish to call back. . Copies of ER physician record, Scrotal US and labs sent along with discharge paperwork . EMS here
== END 2025-02-25 10:27 | disposition home or self-care (01) ==
LOC: EMR 20:15
PROVIDERS: Student in an Organized Health Care Education/Training Program; EMERGENCY PHYSICIAN Student in an Organized Health Care Education/Training Program; FAMILY PHYSICIAN Internal Medicine
DX: N50.89 Other specified disorders of the male genital organs (principal); J45.909 Unspecified asthma, uncomplicated; I50.9 Heart failure, unspecified; E78.00 Pure hypercholesterolemia, unspecified; E11.9 Type 2 diabetes mellitus without complications; K74.60 Unspecified cirrhosis of liver
CPT/HCPCS: 99284; 76870; 80053; 83690; 83880; 85025; 93976